=== PATIENT | female | born 1945 | race Caucasian/White ===

== ENCOUNTER → 2018-12-04 | Outpatient (CLI) | payer MEDICARE ==
--- NOTE | 2018-12-04 10:08 | MR ---
EXAMINATION TYPE: MR iac wo con DATE OF EXAM: 12/04/2018 COMPARISON: None HISTORY: Acoustic nerve disorder / Vertigo Standard multiplanar, multisequence MRI departmental protocol Multiplanar, multisequence images of the IACs were acquired. Diffusion weighted imaging was performed . FINDINGS: Exam is a limited assessment for acoustic neuroma due to the inability to obtain IV access. Therefore contrast could not be administered. Grossly no cerebellopontine angle mass is identified. The nerve complex is symmetric bilaterally. Craniocervical junction maintained. Diffusion imaging demonstrates no evidence of acute ischemia. Heov-gm-otngseiq generalized degenerati ve changes seen. Nonspecific areas of signal the white matter bilaterally are most typical remote genesis rovascular There are changes of mild bilateral chronic mastoiditis. Changes of the left-sided chronic maxillary sinusitis noted. IMPRESSION: 1. 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 2. Degenerative and nonspecific white matter changes. Findings most suggestive of remote microvascula r ischemia. 3. Assessment for cerebellopontine angle mass or acoustic neuroma is limited due to lack of IV contra st as discussed above. Grossly no cerebellopontine angle mass.
== END | disposition home or self-care (01) ==
LOC: RADMRIMAIN 08:53
PROVIDERS: ATTEND Otolaryngology
DX: R90.89 Other abnormal findings on diagnostic imaging of central nervous system (principal); H93.3X9 Disorders of unspecified acoustic nerve
CPT/HCPCS: 70551

== ENCOUNTER 2019-01-04 18:06 | Observation (INO) | payer MEDICARE ==
[2019-01-04] MEDS ORDERED: SODIUM CHLORIDE 0.9% 1,000 ML IV STA (18:44)
[2019-01-04] MEDS ORDERED: IPRATROPIUM-ALBUTEROL 3 ML NEB INHALATION STA (18:46)
--- NOTE | 2019-01-04 18:46 | ED ---
Dizziness HPI - General Chief Complaint: Dizziness Stated Complaint: dizziness, fall Time Seen by Provider: 01/04/19 18:16 Source: patient, family, RN notes reviewed, old records reviewed Mode of arrival: wheelchair Limitations: no limitations - History of Present Illness Initial Comments: This is a 73-year-old female the ER for evaluation she presents today today for evaluation regards to dizziness dizziness for some time. Patient has a fall today secondary to dizziness and ended up with hitting her head no loss of consciousness. Patient receives had some sinus issues and sinus disease runny nose cough congestion. She recently quit smoking but does have chronic cough from 3 years of smoking. Patient denies fevers. No chest pain. No other significant complaints MD Complaint: dizziness, lightheadedness, other (Fall) -: month(s) (Of the dizziness) Description: sense of movement, "room spinning", lightheadedness History of Same: Yes History of Trauma: Yes (Patient fell today) Severity: moderate Improves With: remaining still Worsens With: nothing Associated Symptoms: denies other symptoms - Related Data Home Medications Medication Instructions Recorded Confirmed Fluticasone Nasal [place] [Flonase 1 spray EA NOSTRIL DAILY PRN 01/04/19 01/04/19 Nasal [place]] guaiFENesin [Mucinex] 600 mg PO BID PRN 01/04/19 01/04/19 metFORMIN HCL 1,000 mg PO DAILY 01/04/19 01/04/19 Allergies Allergy/AdvReac Type Severity Reaction Status Date / Time No Known Allergies Allergy Verified 01/04/19 18:28 Review of Systems ROS Statement: Those systems with pertinent positive or pertinent negative responses have been documented in the HPI. ROS Other: All systems not noted in ROS Statement are negative. Past Medical History Past Medical History: Cancer, Diabetes Mellitus, GERD/Reflux, Hypertension Additional Past Medical History / Comment(s): cataracts History of Any Multi-Drug Resistant Organisms: None Reported Additional Past Surgical History / Comment(s): lumpecotmy Past Psychological History: No Psychological Hx Reported Smoking Status: Former smoker Past Alcohol Use History: None Reported Past Drug Use History: None Reported General Exam Limitations: no limitations General appearance: alert, in no apparent distress Head exam: Present: atraumatic, normocephalic, normal inspection Eye exam: Present: normal appearance, PERRL, EOMI. Absent: scleral icterus, conjunctival injection, periorbital swelling ENT exam: Present: normal exam, mucous membranes moist Neck exam: Present: normal inspection. Absent: tenderness, meningismus, lymphadenopathy Respiratory exam: Present: normal lung sounds bilaterally. Absent: respiratory distress, wheezes, rales, rhonchi, stridor Cardiovascular Exam: Present: regular rate, normal rhythm, normal heart sounds. Absent: systolic murmur, diastolic murmur, rubs, gallop, clicks GI/Abdominal exam: Present: soft, normal bowel sounds. Absent: distended, tenderness, guarding, rebound, rigid Extremities exam: Present: normal inspection, full ROM, normal capillary refill. Absent: tenderness, pedal edema, joint swelling, calf tenderness Back exam: Present: normal inspection Neurological exam: Present: alert, oriented X3, CN II-XII intact Psychiatric exam: Present: normal affect, normal mood Skin exam: Present: warm, dry, intact, normal color. Absent: rash Course Vital Signs 01/04/19 01/04/19 01/04/19 18:08 19:19 19:28 Temperature 97.3 F L Pulse Rate 100 99 98 Respiratory 20 Rate Blood Pressure 147/81 O2 Sat by Pulse 100 Oximetry 01/04/19 20:00 Temperature Pulse Rate 98 Respiratory 20 Rate Blood Pressure 165/81 O2 Sat by Pulse 97 Oximetry - Reevaluation(s) Reevaluation #1: 01/04/19 18:51 Medical record is reviewed Reevaluation #2: 01/04/19 20:32 Patient's in no acute distress pulse ox 100% on room air, blood pressures normal - Consultations Consultation #1: Spoke with Dr. codi polo for admission EKG Findings - EKG Comments: EKG Findings:: EKG shows sinus rhythm rate of 97, NV 150, QRS 70, QTc 482 Medical Decision Making - Medical Decision Making 23 female to be admitted for evaluation of left pleural effusion significant left-sided effusion, will admit for pulmonary evaluation - Lab Data Result diagrams: 01/04/19 19:38 01/04/19 19:38 Lab Results 01/04/19 01/04/19 01/04/19 Range/Units 19:38 19:38 19:38 WBC 8.0 (3.8-10.6) k/uL RBC 4.62 (3.80-5.40) m/uL Hgb 11.9 (11.4-16.0) gm/dL Hct 36.2 (34.0-46.0) % MCV 78.5 L (80.0-100.0) fL MCH 25.8 (25.0-35.0) pg MCHC 32.9 (31.0-37.0) g/dL RDW 14.8 (11.5-15.5) % Plt Count 345 (150-450) k/uL Neutrophils % 73 % Lymphocytes % 18 % Monocytes % 5 % Eosinophils % 1 % Basophils % 1 % Neutrophils # 5.9 (1.3-7.7) k/uL Lymphocytes # 1.4 (1.0-4.8) k/uL Monocytes # 0.4 (0-1.0) k/uL Eosinophils # 0.1 (0-0.7) k/uL Basophils # 0.1 (0-0.2) k/uL Hypochromasia Slight PT 10.8 (9.0-12.0) sec INR 1.0 (<1.2) APTT 27.6 (22.0-30.0) sec D-Dimer 2.80 H (<0.60) mg/L FEU Sodium 139 (137-145) mmol/L Potassium 3.5 (3.5-5.1) mmol/L Chloride 97 L (98-107) mmol/L Carbon Dioxide 29 (22-30) mmol/L Anion Gap 13 mmol/L BUN 17 (7-17) mg/dL Creatinine 0.73 (0.52-1.04) mg/dL Est GFR (CKD-EPI)AfAm >90 (>60 ml/min/1.73 sqM) Est GFR (CKD-EPI)NonAf 82 (>60 ml/min/1.73 sqM) Glucose 139 H (74-99) mg/dL Plasma Lactic Acid Guillermo (0.7-2.0) mmol/L Calcium 10.0 (8.4-10.2) mg/dL Phosphorus 3.1 (2.5-4.5) mg/dL Magnesium 2.0 (1.6-2.3) mg/dL Total Bilirubin 0.6 (0.2-1.3) mg/dL AST 19 (14-36) U/L ALT 15 (9-52) U/L Alkaline Phosphatase 119 (38-126) U/L Creatine Kinase 35 (30-135) U/L Troponin I (0.000-0.034) ng/mL NT-Pro-B Natriuret Pep pg/mL Total Protein 8.1 (6.3-8.2) g/dL Albumin 4.4 (3.5-5.0) g/dL 01/04/19 01/04/19 01/04/19 Range/Units 19:38 19:38 19:38 WBC (3.8-10.6) k/uL RBC (3.80-5.40) m/uL Hgb (11.4-16.0) gm/dL Hct (34.0-46.0) % MCV (80.0-100.0) fL MCH (25.0-35.0) pg MCHC (31.0-37.0) g/dL RDW (11.5-15.5) % Plt Count (150-450) k/uL Neutrophils % % Lymphocytes % % Monocytes % % Eosinophils % % Basophils % % Neutrophils # (1.3-7.7) k/uL Lymphocytes # (1.0-4.8) k/uL Monocytes # (0-1.0) k/uL Eosinophils # (0-0.7) k/uL Basophils # (0-0.2) k/uL Hypochromasia PT (9.0-12.0) sec INR (<1.2) APTT (22.0-30.0) sec D-Dimer (<0.60) mg/L FEU Sodium (137-145) mmol/L Potassium (3.5-5.1) mmol/L Chloride (98-107) mmol/L Carbon Dioxide (22-30) mmol/L Anion Gap mmol/L BUN (7-17) mg/dL Creatinine (0.52-1.04) mg/dL Est GFR (CKD-EPI)AfAm (>60 ml/min/1.73 sqM) Est GFR (CKD-EPI)NonAf (>60 ml/min/1.73 sqM) Glucose (74-99) mg/dL Plasma Lactic Acid Guillermo 2.5 H* (0.7-2.0) mmol/L Calcium (8.4-10.2) mg/dL Phosphorus (2.5-4.5) mg/dL Magnesium (1.6-2.3) mg/dL Total Bilirubin (0.2-1.3) mg/dL AST (14-36) U/L ALT (9-52) U/L Alkaline Phosphatase (38-126) U/L Creatine Kinase (30-135) U/L Troponin I 0.036 H* (0.000-0.034) ng/mL NT-Pro-B Natriuret Pep 2610 pg/mL Total Protein (6.3-8.2) g/dL Albumin (3.5-5.0) g/dL - Radiology Data Radiology results: report reviewed (CT brain C-spine negative for acute disease chest x-ray show significant left-sided pleural effusion), image reviewed Disposition Clinical Impression: Fall, Dehydration, Dizziness, Pleural effusion, left Disposition: ADMITTED IP TO THIS HOSP Condition: Fair Is patient prescribed a controlled substance at d/c from ED?: No Referrals: Jeremiah Hall DO [Primary Care Provider] - 1-2 days
[2019-01-04] MEDS ORDERED: ONDANSETRON 4 MG/2 ML VIAL IVP STA (19:44)
[2019-01-04 19:54] LABS: Basophils # (A) 0.1 k/uL (0-0.2); Basophils % (A) 1 %; Eosinophils # (A) 0.1 k/uL (0-0.7); Eosinophils % (A) 1 %; HCT 36.2 % (34.0-46.0); HGB 11.9 gm/dL (11.4-16.0); Hypochromasia Slight; Lymphocytes # (A) 1.4 k/uL (1.0-4.8); Lymphocytes % (A) 18 %; MCH 25.8 pg (25.0-35.0); MCHC 32.9 g/dL (31.0-37.0); MCV 78.5 fL (80.0-100.0); Mean Platelet Volume 6.8; Monocytes # (A) 0.4 k/uL (0-1.0); Monocytes % (A) 5 %; Neutrophils # (A) 5.9 k/uL (1.3-7.7); Neutrophils % (A) 73 %; Platelet Count 345 k/uL (150-450); RBC 4.62 m/uL (3.80-5.40); RDW 14.8 % (11.5-15.5)
[2019-01-04 20:05] LABS: ALT 15 U/L (9-52); AST 19 U/L (14-36); African American GFR (CKD) >90 (>60 ml/min/1.73 sqM); Albumin 4.4 g/dL (3.5-5.0); Alkaline Phosphatase 119 U/L (38-126); Anion Gap 13 mmol/L; Blood Urea Nitrogen 17 mg/dL (7-17); Carbon Dioxide 29 mmol/L (22-30); Chloride 97 mmol/L (98-107); Creatine Kinase 35 U/L (30-135); Glucose 139 mg/dL (74-99); Phosphorus 3.1 mg/dL (2.5-4.5); Potassium 3.5 mmol/L (3.5-5.1); Sodium 139 mmol/L (137-145); Total Bilirubin 0.6 mg/dL (0.2-1.3); Total Protein 8.1 g/dL (6.3-8.2)
--- NOTE | 2019-01-04 20:09 | CT ---
EXAMINATION TYPE: CT brain richelle dey DATE OF EXAM: 01/04/2019 COMPARISON: None HISTORY: Fall with head injury Headache. Neck pain CT DLP: 1035.8 mGycm Automated exposure control for dose reduction was used. TECHNIQUE: CT scan of the head and cervical spine are performed without contrast. FINDINGS: Ventricles have normal size. There is no mass effect nor midline shift. There is no sign of intracranial hemorrhage. There is cerebral cortical atrophy. Calvarium is intact. There is mucus r etention cyst left maxillary sinus. Cervical vertebra have normal alignment. There is a very large posterior hypertrophic osteophyte of t he endplates at C5-6 that is significantly narrowing the spinal canal. There is no compression fractu re. Skull base is intact. There is mild narrowing at C5-6 and C6-7 disc spaces. IMPRESSION: Cerebral atrophy. No acute intracranial abnormality. Spondylotic changes in the cervical spine. Significant spurring at C5-6 with 3 to 4 mm cervical bony spinal stenosis.
--- NOTE | 2019-01-04 20:12 | CT ---
EXAMINATION TYPE: CT facial bones wo con DATE OF EXAM: 01/04/2019 COMPARISON: None HISTORY: Fall with head injury CT DLP: 1035.8 mGycm Automated exposure control for dose reduction was used. TECHNIQUE: CT scan of the sinuses is performed without contrast, axial images are obtained, coronal r eformatted images are also reviewed. FINDINGS: There is 2 cm mucus retention cyst in the inferior left maxillary sinus. There is no eviden ce of a blowout fracture. Orbital margins are intact. There is no evidence of orbital mass. The globe s are symmetric. Nasal bone appears intact. Zygomatic arches appear normal. Maxilla is intact. The mandibular ring is intact. Mandibular joints appear normal. There is no evidence of mandibular fr acture. There is fairly normal aeration of the ethmoid and frontal and sphenoid sinuses. There is mil d arthritic change at the temporomandibular joints. IMPRESSION: No evidence of traumatic injury. Mucus retention cyst left maxillary sinus.
--- NOTE | 2019-01-04 20:14 | XR ---
EXAMINATION TYPE: XR chest 2V DATE OF EXAM: 01/04/2019 COMPARISON: NONE HISTORY: Cough and dizziness TECHNIQUE: Frontal and lateral views of the chest are obtained. FINDINGS: There is complete opacification left hemithorax. Heart and mediastinum are shifted to the left side. Right lung is clear. There is no heart failure. IMPRESSION: Opacification left hemithorax could relate to pneumonectomy or complete left pulmonary a telectasis and minimal pleural fluid. Correlation with surgical history needed. No heart failure.
[2019-01-04 20:17] LABS: Partial Thromboplastin Time 27.6 sec (22.0-30.0); Prothrombin Time 10.8 sec (9.0-12.0)
[2019-01-04 20:22] LABS: D-Dimer 2.8 mg/L FEU (<0.60)
[2019-01-04] MEDS ORDERED: MORPHINE SULFATE 4 MG/ML SYRINGE IVP STA (20:30)
[2019-01-04] MEDS ORDERED: MORPHINE SULFATE 4 MG/ML SYRINGE IVP PRN (20:30)
[2019-01-04] MEDS ORDERED: ONDANSETRON 4 MG/2 ML VIAL IVP PRN (20:30)
--- NOTE | 2019-01-04 21:24 | CT ---
EXAMINATION TYPE: CT ChestAbdPelvis w con DATE OF EXAM: 01/04/2019 COMPARISON: None HISTORY: Effusion CT DLP: 759.6 mGycm Automated exposure control for dose reduction was used. CONTRAST: CT scan of the chest, abdomen and pelvis is performed without Oral Contrast and with IV Contrast, pat ient injected with 100 mL of Isovue 300. FINDINGS: There is large left pleural effusion. There is complete atelectasis left lung. There is a very large mediastinal mass involving the subcarinal region and left pulmonary hilum. This measures almost 10 cm in diameter. There is complete occlusion left mainstem bronchus. There is narrowing of the left lower lobe pulmonary artery which is encased with tumor mass. Thoracic aorta shows no aneurysm or dissection. Heart is shifted to the left side. The right lung is clear. The thyroid gland is symmetric. Superior mediastinum appears normal. Liver spleen stomach pancreas gallbladder appear normal. Bile ducts are not dilated. There is no adre nal mass. Kidneys show satisfactory contrast opacification. There is no hydronephrosis. Ureters are n ot dilated. Bladder distends smoothly. There is no inguinal hernia. There is no free fluid in the pel vis. Uterus is anteverted. Appendix is not seen. There is no sign of thickened appendix. There is no evidence of a bowel obstruction. There is no mesenteric edema. There is no ascites or free air. Abdom inal aorta is atheromatous. There is multilevel spondylotic changes in the thoracic and lumbar spine. 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 Comp lete atelectasis left lung. Left hydrothorax with volume loss.
[2019-01-04 22:36] VITALS: BMI 22.5
[2019-01-04 23:59] LABS: Appearance,Urine Clear (Clear); Bilirubin,Urine Negative (Negative); Blood,Urine Negative (Negative); Color,Urine Light Yellow; Glucose,Urine (UA) Negative (Negative); Ketones,Urine Negative (Negative); Leukocyte Esterase,Urine Small (Negative); Mucus,Urine Rare /hpf; Nitrite,Urine Negative (Negative); Protein,Urine Negative (Negative); RBC,Urine 1 /hpf (0-5); Specific Gravity,Urine 1.036 (1.001-1.035); Squamous Epithelial Cell,Urine 1 /hpf (0-4); Urobilinogen,Urine <2.0 mg/dL (<2.0); WBC,Urine 12 /hpf (0-5)
[2019-01-05 06:49] LABS: Glucose,Whole Blood 137 mg/dL (75-99)
[2019-01-05] MEDS: INSULIN ASPART (NovoLOG) 100 UNIT/ML VIAL SQ SCH ×2 (07:45→11:49)
[2019-01-05] MEDS: IPRATROPIUM-ALBUTEROL 3 ML NEB INHALATION SCH ×2 (07:54→11:35)
[2019-01-05 07:56] VITALS: BP 104/88; RESP 16; TEMP 98.1
[2019-01-05 08:05] VITALS: PULSE 94
[2019-01-05] MEDS ORDERED: ENOXAPARIN 40 MG/0.4 ML SYRINGE SQ SCH (09:00)
[2019-01-05] MEDS ORDERED: SCOPOLAMINE 1.5MG/72HR PATCH TRANSDERM SCH (12:15)
[2019-01-05] MEDS ORDERED: NICOTINE 21MG/24HR PATCH TRANSDERM SCH (12:15)
--- NOTE | 2019-01-05 12:27 | P.CNPUL ---
History of Present Illness Consult date: 01/05/19 Reason for consult: dyspnea, lung mass History of present illness: A 73 -year-old female patient who comes into the hospital yesterday because of several complaints including worsening shortness of breath, difficulties in swallowing, persistent nausea and episodic emesis, and having difficulty in taken in solids and liquids, 40 pounds weight loss, hoarseness and generalized weakness and tiredness and fatigue and debility. The patient is a chronic smoker in she smoked up to 3-4 packs of cigarettes a day. On 6 weeks ago she quit smoking. She was having also issues with dizziness and lightheadedness and impaired hearing. She was seen by ENT and the patient was referred to the hospital for further evaluation. In the ED, CAT scan of the brain was done and was negative. CAT scan of the chest was done and it showed a large left-sided pleural effusion, complete atelectasis of the left lung. A very large mediastinal mass involving the subcarinal region and the left pulmonary hilum measuring at least 10 cm in diameter with complete opacification and occlusion of the left mainstem bronchus due to endobronchial extension and extrinsic compression. There is also narrowing of the left lower lobe pulmonary artery with the tumor. There is also some mass effect on the esophagus which is slightly dilated. No evidence of any bowel obstruction. Liver and spleen and stomach and pancreas are within normal limits. No herniation. Noted the patient elected as level of 2. further dropped down to 1.6. Her troponin is at 0.036. No reported aspiration. No reported hemoptysis. No pleurisy. No chest pain. She is awake and alert and her daughter and granddaughter both of the bedside. She has a very poor medical follow-up. She is not a person would go to doctors. She is not a person with complying with treatment and this is according to her. At one point she was diagnosed having a localized breast cancer and she underwent a lumpectomy and this was in 1999 and she hasn't had any follow-up since. She takes metformin for diabetes. Review of Systems Constitutional: Reports fatigue, Reports lethargy, Reports malaise, Reports poor appetite, Reports weakness Eyes: denies as per HPI, denies blurred vision, denies bulging eye, denies decreased vision, denies diplopia, denies discharge, denies dry eye, denies irritation, denies itching, denies pain, denies photophobia, denies loss of peripheral vision, denies loss of vision, denies tunnel vision/blind spots Ears: bilateral: decreased hearing, deny: ear discharge, earache, tinnitus Ears, nose, mouth and throat: Reports hoarseness, Reports voice changes Breasts: absent: as per HPI, change in shape, gynecomastia, masses, nipple discharge, pain, skin changes, swelling Cardiovascular: Reports decreased exercise tolerance, Reports dyspnea on exertion, Reports shortness of breath Respiratory: Reports cough, Reports dyspnea Gastrointestinal: Reports change in bowel habits, Reports loss of appetite, Reports nausea, Reports vomiting Genitourinary: Denies dysuria, Denies hematuria Menstruation: Reports as per HPI Musculoskeletal: Reports as per HPI, Reports muscle weakness Musculoskeletal: absent: ankle pain, ankle stiffness, ankle swelling Integumentary: Denies pruritus, Denies rash Neurological: Reports as per HPI, Reports weakness Psychiatric: Reports as per HPI Endocrine: Reports as per HPI Hematologic/Lymphatic: Reports as per HPI Allergic/Immunologic: Reports as per HPI Past Medical History Past Medical History: Cancer, Diabetes Mellitus, GERD/Reflux, Hypertension Additional Past Medical History / Comment(s): fabienne cataracts, left breast cancer. History of Any Multi-Drug Resistant Organisms: None Reported Past Surgical History: Appendectomy, Tonsillectomy Additional Past Surgical History / Comment(s): left breast lumpecotmy. Past Anesthesia/Blood Transfusion Reactions: No Reported Reaction Past Psychological History: Anxiety, Depression Smoking Status: Former smoker (States the patient quit smoking 6 weeks ago. Prior to that she was woken up to 3 packs on a daily basis.) Past Alcohol Use History: None Reported Past Drug Use History: None Reported - Past Family History Father Family Medical History: Renal Disease Mother Family Medical History: Diabetes Mellitus Medications and Allergies Home Medications Medication Instructions Recorded Confirmed Type Fluticasone Nasal [place] [Flonase 1 spray EA NOSTRIL DAILY PRN 01/04/19 01/04/19 History Nasal [place]] guaiFENesin [Mucinex] 600 mg PO BID PRN 01/04/19 01/04/19 History metFORMIN HCL 1,000 mg PO DAILY 01/04/19 01/04/19 History Ipratropium-Albuterol Nebulize 3 ml INHALATION RT-QID ampul.neb 01/05/19 Rx [Duoneb 0.5 mg-3 mg/3 ml Soln] Nicotine 21Mg/24Hr Patch [Habitrol] 1 patch TRANSDERM DAILY patch 01/05/19 Rx Scopolamine 1.5MG/72Hr Patch 1 patch TRANSDERM Q72H patch 01/05/19 Rx [TransDerm Scop] Allergies Allergy/AdvReac Type Severity Reaction Status Date / Time No Known Allergies Allergy Verified 01/04/19 18:28 Physical Exam Vitals: Vital Signs Temp Pulse Pulse Resp BP BP Pulse Ox 01/05/19 08:05 94 01/05/19 07:55 100 01/05/19 07:00 98.1 F 104 H 16 104/88 95 01/05/19 01:45 97.8 F 95 17 140/83 99 01/05/19 00:00 20 01/04/19 21:35 98.3 F 101 H 17 154/81 97 01/04/19 21:00 98.2 F 96 20 162/89 97 01/04/19 20:00 98 20 165/81 97 01/04/19 19:28 98 01/04/19 19:19 99 01/04/19 18:08 97.3 F L 100 20 147/81 100 Intake and Output 01/04/19 01/05/19 01/05/19 22:59 06:59 14:59 Intake Total 120 Balance 120 Intake: Intake, IV Titration 120 Amount Sodium Chloride 0.9% 1, 120 000 ml @ 999 mls/hr IV . Q1H1M STA Rx#:[id number] Other: Voiding Method Toilet Bedside Commode Bedside Commode Diaper Diaper # Voids 1 1 1 Weight 63.276 kg General appearance: alert, in no apparent distress, looks quite debilitated and cachectic with a BMI of 22.5 Head exam: Present: atraumatic, normocephalic, normal inspection Eye exam: Present: normal appearance, PERRL, EOMI. Absent: scleral icterus, conjunctival injection, periorbital swelling ENT exam: Present: normal exam, mucous membranes moist Neck exam: Present: normal inspection. Absent: tenderness, meningismus, lymphadenopathy Respiratory exam: No breath sounds on the left compared to the right. Right lung essentially clear. Breath sounds are nearly absent the left lung. No wheezes. No rhonchi. Cardiovascular Exam: Present: regular rate, normal rhythm, normal heart sounds. Absent: systolic murmur, diastolic murmur, rubs, gallop, clicks GI/Abdominal exam: Present: soft, normal bowel sounds. Absent: distended, tenderness, guarding, rebound, rigid Extremities exam: Present: normal inspection, full ROM, normal capillary refill. Absent: tenderness, pedal edema, joint swelling, calf tenderness Back exam: Present: normal inspection Neurological exam: Present: alert, oriented X3, CN II-XII intact Psychiatric exam: Present: normal affect, normal mood Skin exam: Present: warm, dry, intact, normal color. Absent: rash Results - Laboratory Findings CBC and BMP: 01/04/19 19:38 01/04/19 19:38 PT/INR, D-dimer PT 10.8 sec (9.0-12.0) 01/04/19 19:38 INR 1.0 (<1.2) 01/04/19 19:38 D-Dimer 2.80 mg/L FEU (<0.60) H 01/04/19 19:38 Abnormal lab findings: Abnormal Labs 01/04/19 01/04/19 01/04/19 19:38 19:38 19:38 MCV 78.5 L D-Dimer 2.80 H Chloride 97 L Glucose 139 H POC Glucose (mg/dL) Plasma Lactic Acid Guillermo Troponin I Ur Specific [place] Ur Leukocyte Esterase Urine WBC Urine Mucus 01/04/19 01/04/19 01/04/19 19:38 19:38 23:48 MCV D-Dimer Chloride Glucose POC Glucose (mg/dL) Plasma Lactic Acid Guillermo 2.5 H* Troponin I 0.036 H* Ur Specific [place] 1.036 H Ur Leukocyte Esterase Small H Urine WBC 12 H Urine Mucus Rare H 01/05/19 06:48 MCV D-Dimer Chloride Glucose POC Glucose (mg/dL) 137 H Plasma Lactic Acid Guillermo Troponin I Ur Specific [place] Ur Leukocyte Esterase Urine WBC Urine Mucus - Diagnostic Findings CT scan - chest: image reviewed Assessment and Plan Plan: 1 left hilar/mediastinal mass which is measuring at least 10 cm in size extending from the subcarinal area to the left pulmonary hilum and probably invading the cardiac structures and causing complete occlusion of the left mainstem bronchus possibly due to endobronchial extension and extrinsic compression. At the same time, the patient has complete atelectasis/collapse of the left lung with subsequent development of a left-sided pleural effusion. There may be also some mass effect on the esophagus. 2 progressive dyspnea secondary to above 3 progressive difficulties in swallowing with recurrent nausea and emesis and 40 pounds weight loss 4 chronic smoking more than 3 packs a day 5 generalized weakness and difficult mobility and gait and progressive debility over this past 6 months. 6 limited exercise capacity and the patient has become progressively chair bound due to above 7 remote history of breast cancer with a previous lumpectomy 8 diabetes mellitus 9 hypertension 10 poor medical follow-up over the years Plan I explained the findings with the patient. There is a very high suspicion that the patient has a primary bronchogenic cancer which is at least locally advanced causing complete occlusion of the left mainstem bronchus and complete atelectasis of the left lung. Ideally, we'll need either a bronchoscopy to establish tissue diagnosis and this can be easily done via bronchoscopy. Another intervention that can be considered is a limited thoracentesis of the left lung with a small amount of fluid can be drained for cytology. Note that a large on thoracentesis may not be successful and the patient has complete obstruction of the left mainstem bronchus and there is absolutely no chances for the left lung to reexpand. Note that both of these procedures may end up giving us a diagnosis with a more effective procedure being bronchoscopy giving us higher yield based on the CAT scan findings. I offered this to the patient. The patient understood that this is a malignant process. The patient told me that she is not interested in receiving any form of treatment being in surgery, chemo, or radiation should diagnosis of cancer is established. In fact she was not interested in pursuing the diagnosis any further based on the fact that she knows that she had been aggressively getting worse and she stated that she does not want to spend whatever days she has left receiving chemotherapy or any other cancer treatment. This discussion took place in the presence of her daughter. A similar illness, we decided not to do any diagnostic interventions. The patient expressed wishes him going home. I agreed to that and I arranged for hospice evaluate this patient for home hospice knowing that her condition is terminal and probably she will gradually get worse over the next few weeks. She can go home from the pulmonary standpoint once hospice care is established. All other questions were answered to their satisfaction. I offered my card and I offered my services if thereare any quest ions that she may have in the futures.
--- NOTE | 2019-01-05 18:28 | P.HPIM ---
History of Present Illness H&P Date: 01/05/19 Chief Complaint: Dizziness History of presenting complaint: This is a 73-year-old patient of Dr. Hall. Chronic stable medical conditions include diabetes, GERD, hypertension. Patient active smoker. Patient breathing is been gradually getting worse. Some wheezing. Also nausea vomiting. Patient has been getting rather dizzy. Has been losing weight.: Dizzy to the point that she is followed a couple of times. She did have a computed tomography scan of the chest that showed a large left pleural effusion. 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 Patient is here with her daughter and granddaughter. She had held off smoking about 450. In the past she's had breast cancer or 2000. Did not follow for the same. Denies any fever and chills. Feels tired rundown and fatigued. Review of systems: GEN.: Decreased appetite tired. Also weight EYES: None HEENT: None NECK: None RESPIRATORY: Short of breath cough wheezing CARDIOVASCULAR: None GASTROINTESTINAL: Decreased appetite GENITOURINARY: None MUSCULOSKELETAL: Some pain in joints LYMPHATICS: None HEMATOLOGICAL: None PSYCHIATRY: None NEUROLOGICAL: Dizziness neurological focal Past medical history to include: Diabetes mellitus type II, GERD, hypertension, left breast cancer Social history: This is a daughter and granddaughter. Smoked 3 to fax a day for over 50 years. Stopped about 4 weeks ago. denies alcohol. Physical examination: VITAL SIGNS: 97.3, 100, 20, 147/81, 100% room air GENERAL: BMI 22.5, sitting at edge of the bed, tired appearing. EYES: Pupils equal. Conjunctiva normal. HEENT: External appearance of nose and ears normal, oral cavity grossly normal, wearing hearing aid. NECK: JVD not raised; masses not palpable. HEART: First and second heart sounds are normal; no edema. LUNGS: Respiratory rate increased, diminished breath sounds prolonged expiration and wheezing. ABDOMEN: Soft, nontender, liver spleen not palpable, no masses palpable. PSYCH: Alert and oriented x3; mood and affect tiredl. NEUROLOGICAL: Cranial nerves grossly intact; no facial asymmetry, power and sensation grossly intact. LYMPHATICS: No lymph nodes palpable in the axilla and neck INVESTIGATIONS, reviewed in the clinical context: White count 8 hemoglobin 11.9 potassium 3.5 creatinine 0.73 Lactic acid 2.5 troponin 0.036 proBNP 2610 Computed tomography scan of the brain and spine-cerebral atrophy no fracture some on 3 changes; face CT-no evidence of fractures; chest abdomen and pelvis CT showing a very large mediastinal and left hilar mass and complete left lung atelectasis. Left hiatal thorax with volume loss EKG tracing personally reviewed by me-sinus rhythm some ST segment changes Chest x-ray film-complete opacification of the left side Assessment: -Strongly suspicious of primary lung tumor based on the computed tomography scan finding. There is a large mediastinal mass and in the bronchial antonia. This is a very aggressive tumor based anatomically an prognosis poor about the same. -Chronic nicotine dependence patient cigarette smoker -Diabetes mellitus type 2 -GERD -Essential hypertension -COPD in a current smoker Plan: Dr. Keith from pulmonary obvious of the patient. Patient and family do not want any further treatment and would like hospice. I answered several questions and spoke to the hospice.. Bronchodilators will be started. For the increased secretions let scopolamine patch.. Patient is Dr. patient will understand the situation and would like to keep things simple asked to describe. Which is en tirely reasonable and right thing to do. Hospice consulted. It was discussed that at that of the fluid is drained it'll rapidly reaccumulate. Hence did not want any thoracentesis. Past Medical History Past Medical History: Cancer, Diabetes Mellitus, GERD/Reflux, Hypertension Additional Past Medical History / Comment(s): fabienne cataracts, left breast cancer. History of Any Multi-Drug Resistant Organisms: None Reported Past Surgical History: Appendectomy, Tonsillectomy Additional Past Surgical History / Comment(s): left breast lumpecotmy. Past Anesthesia/Blood Transfusion Reactions: No Reported Reaction Past Psychological History: Anxiety, Depression Smoking Status: Former smoker Past Alcohol Use History: None Reported Past Drug Use History: None Reported - Past Family History Father Family Medical History: Renal Disease Mother Family Medical History: Diabetes Mellitus Medications and Allergies Home Medications Medication Instructions Recorded Confirmed Type Fluticasone Nasal [place] [Flonase 1 spray EA NOSTRIL DAILY PRN 01/04/19 01/04/19 History Nasal [place]] guaiFENesin [Mucinex] 600 mg PO BID PRN 01/04/19 01/04/19 History metFORMIN HCL 1,000 mg PO DAILY 01/04/19 01/04/19 History Ipratropium-Albuterol Nebulize 3 ml INHALATION RT-QID ampul.neb 01/05/19 Rx [Duoneb 0.5 mg-3 mg/3 ml Soln] Nicotine 21Mg/24Hr Patch [Habitrol] 1 patch TRANSDERM DAILY patch 01/05/19 Rx Scopolamine 1.5MG/72Hr Patch 1 patch TRANSDERM Q72H patch 01/05/19 Rx [TransDerm Scop] Allergies Allergy/AdvReac Type Severity Reaction Status Date / Time No Known Allergies Allergy Verified 01/04/19 18:28 Physical Exam Vitals: Vital Signs Temp Pulse Pulse Resp BP BP Pulse Ox 01/05/19 08:05 94 01/05/19 07:55 100 01/05/19 07:00 98.1 F 104 H 16 104/88 95 01/05/19 01:45 97.8 F 95 17 140/83 99 01/05/19 00:00 20 01/04/19 21:35 98.3 F 101 H 17 154/81 97 01/04/19 21:00 98.2 F 96 20 162/89 97 01/04/19 20:00 98 20 165/81 97 01/04/19 19:28 98 01/04/19 19:19 99 01/04/19 18:08 97.3 F L 100 20 147/81 100 Intake and Output 01/04/19 01/05/19 01/05/19 22:59 06:59 14:59 Intake Total 120 Balance 120 Intake: Intake, IV Titration 120 Amount Sodium Chloride 0.9% 1, 120 000 ml @ 999 mls/hr IV . Q1H1M STA Rx#:[id number] Other: Voiding Method Toilet Bedside Commode Bedside Commode Diaper Diaper # Voids 1 1 1 Weight 63.276 kg Results CBC & Chem 7: 01/04/19 19:38 01/04/19 19:38 Labs: Abnormal Lab Results - Last 24 Hours (Table) 01/04/19 01/04/19 01/04/19 Range/Units 19:38 19:38 19:38 MCV 78.5 L (80.0-100.0) fL D-Dimer 2.80 H (<0.60) mg/L FEU Chloride 97 L (98-107) mmol/L Glucose 139 H (74-99) mg/dL POC Glucose (mg/dL) (75-99) mg/dL Plasma Lactic Acid [place] (0.7-2.0) mmol/L Troponin I (0.000-0.034) ng/mL Ur Specific [place] (1.001-1.035) Ur Leukocyte Esterase (Negative) Urine WBC (0-5) /hpf Urine Mucus (None) /hpf 01/04/19 01/04/19 01/04/19 Range/Units 19:38 19:38 23:48 MCV (80.0-100.0) fL D-Dimer (<0.60) mg/L FEU Chloride (98-107) mmol/L Glucose (74-99) mg/dL POC Glucose (mg/dL) (75-99) mg/dL Plasma Lactic Acid [place] 2.5 H* (0.7-2.0) mmol/L Troponin I 0.036 H* (0.000-0.034) ng/mL Ur Specific [place] 1.036 H (1.001-1.035) Ur Leukocyte Esterase Small H (Negative) Urine WBC 12 H (0-5) /hpf Urine Mucus Rare H (None) /hpf 01/05/19 Range/Units 06:48 MCV (80.0-100.0) fL D-Dimer (<0.60) mg/L FEU Chloride (98-107) mmol/L Glucose (74-99) mg/dL POC Glucose (mg/dL) 137 H (75-99) mg/dL Plasma Lactic Acid [place] (0.7-2.0) mmol/L Troponin I (0.000-0.034) ng/mL Ur Specific [place] (1.001-1.035) Ur Leukocyte Esterase (Negative) Urine WBC (0-5) /hpf Urine Mucus (None) /hpf Thrombosis Risk Factor Assmnt - Choose All That Apply Each Risk Factor Represents 3 Points: Age 75 years or older Thrombosis Risk Factor Assessment Total Risk Factor Score: 3 Thrombosis Risk Factor Assessment Level: Moderate Risk
--- NOTE | 2019-01-05 18:30 | P.DS ---
Providers Date of admission: 01/04/19 20:28 Expected date of discharge: 01/05/19 Attending physician: Ang Brandt Consults: 01/04/19 20:28 Consult Physician Routine Consulting Provider: Mary Keith Consult Reason/Comments: pleuralEffusion Do you want consulting provider notified?: Yes Primary care physician: Jeremiah Hall [facility] Course: Chief Complaint: Dizziness Hospital course: This is a 73-year-old patient of Dr. Hall. Chronic stable medical conditions include diabetes, GERD, hypertension. Patient active smoker. Patient breathing is been gradually getting worse. Some wheezing. Also nausea vomiting. Patient has been getting rather dizzy. Has been losing weight.: Dizzy to the point that she is followed a couple of times. She did have a computed tomography scan of the chest that showed a large left pleural effusion. 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 Patient is here with her daughter and granddaughter. She had held off smoking about 450. In the past she's had breast cancer or 2000. Did not follow for the same. Denies any fever and chills. Feels tired rundown and fatigued. Patient seen by Dr. Keith. Computed tomography scan is showing a large lung mass in the hilar area and possible left lung total collapse. Prognosis poor. Patient in family that is patient's daughter at rightfully decided to proceed with hospice. Hospice was consulted. Patient be going home with hospice. Questions were answered. Physical examination: VITAL SIGNS: 97.3, 100, 20, 147/81, 100% room air GENERAL: BMI 22.5, sitting at edge of the bed, tired appearing. EYES: Pupils equal. Conjunctiva normal. HEENT: External appearance of nose and ears normal, oral cavity grossly normal, wearing hearing aid. NECK: JVD not raised; masses not palpable. HEART: First and second heart sounds are normal; no edema. LUNGS: Respiratory rate increased, diminished breath sounds prolonged expiration and wheezing. ABDOMEN: Soft, nontender, liver spleen not palpable, no masses palpable. PSYCH: Alert and oriented x3; mood and affect tiredl. INVESTIGATIONS, reviewed in the clinical context: White count 8 hemoglobin 11.9 potassium 3.5 creatinine 0.73 Lactic acid 2.5 troponin 0.036 proBNP 2610 Computed tomography scan of the brain and spine-cerebral atrophy no fracture some on 3 changes; face CT-no evidence of fractures; chest abdomen and pelvis CT showing a very large mediastinal and left hilar mass and complete left lung atelectasis. Left hiatal thorax with volume loss EKG tracing personally reviewed by me-sinus rhythm some ST segment changes Chest x-ray film-complete opacification of the left side Discharge diagnosis: -Strongly suspicious of primary lung tumor based on the computed tomography scan finding. There is a large mediastinal mass and in the bronchial antonia. This is a very aggressive tumor based anatomically an prognosis poor about the same. -Chronic nicotine dependence patient cigarette smoker -Diabetes mellitus type 2 -GERD -Essential hypertension -COPD in a current smoker Disposition: Home with hospice Patient Condition at Discharge: Poor Plan - Discharge Summary New Discharge Prescriptions: New Ipratropium-Albuterol Nebulize [Duoneb 0.5 mg-3 mg/3 ml Soln] 3 ml INHALATION RT-QID ampul.neb Nicotine 21Mg/24Hr Patch [Habitrol] 1 patch TRANSDERM DAILY patch Scopolamine 1.5MG/72Hr Patch [TransDerm Scop] 1 patch TRANSDERM Q72H patch Continue metFORMIN HCL 1,000 mg PO DAILY guaiFENesin [Mucinex] 600 mg PO BID PRN PRN Reason: Cough Fluticasone Nasal [place] [Flonase Nasal [place]] 1 spray EA NOSTRIL DAILY PRN PRN Reason: Nasal Congestion Discharge Medication List Fluticasone Nasal [place] [Flonase Nasal [place]] 1 spray EA NOSTRIL DAILY PRN 01/04/19 [History] guaiFENesin [Mucinex] 600 mg PO BID PRN 01/04/19 [History] metFORMIN HCL 1,000 mg PO DAILY 01/04/19 [History] Ipratropium-Albuterol Nebulize [Duoneb 0.5 mg-3 mg/3 ml Soln] 3 ml INHALATION RT-QID ampul.neb 01/05/19 [Rx] Nicotine 21Mg/24Hr Patch [Habitrol] 1 patch TRANSDERM DAILY patch 01/05/19 [Rx] Scopolamine 1.5MG/72Hr Patch [TransDerm Scop] 1 patch TRANSDERM Q72H patch 01/05/19 [Rx] Follow up Appointment(s)/Referral(s): [facility], [NON-STAFF] - Leon,Derrell, PAC [REFERRING] - As Needed Discharge Disposition: HOME WITH HOSPICE
== END 2019-01-05 12:39 | disposition hospice, home (50) ==
LOC: EC 18:06 → 4SSUR 20:28
PROVIDERS: ADMIT Hospitalist; ATTEND Hospitalist
DX: J98.59 Other diseases of mediastinum, not elsewhere classified (principal); J98.09 Other diseases of bronchus, not elsewhere classified; E86.0 Dehydration; J90 Pleural effusion, not elsewhere classified; E11.9 Type 2 diabetes mellitus without complications; K21.9 Gastro-esophageal reflux disease without esophagitis; I10 Essential (primary) hypertension; J44.9 Chronic obstructive pulmonary disease, unspecified; F17.210 Nicotine dependence, cigarettes, uncomplicated; R53.83 Other fatigue; R42 Dizziness and giddiness; R63.4 Abnormal weight loss; R13.10 Dysphagia, unspecified; J98.11 Atelectasis; R53.81 Other malaise; R53.1 Weakness; R11.2 Nausea with vomiting, unspecified; R64 Cachexia; Z68.22 Body mass index [BMI] 22.0-22.9, adult; M48.02 Spinal stenosis, cervical region; H26.9 Unspecified cataract; F32.9 Major depressive disorder, single episode, unspecified; F41.9 Anxiety disorder, unspecified; Z79.84 Long term (current) use of oral hypoglycemic drugs; Z79.899 Other long term (current) drug therapy; W19.XXXA Unspecified fall, initial encounter; Z85.3 Personal history of malignant neoplasm of breast; Z83.3 Family history of diabetes mellitus; Z84.1 Family history of disorders of kidney and ureter
CPT/HCPCS: 96376; 96361 ×3; 96372; 96374; 96375; 99285; 36415; 94640 ×2; 93005; 85379; 83880; 80053; 82550; 83605; 83735; 84100; 84484; 85025; 85610; 85730; 81001; 71046; 72125; 70486; 70450; 71260; 74177; G0378 ×2; J2270; J2405 ×2; J1650; Q9967